=== PATIENT | female | born 1980 | race African-American/Black ===

== ENCOUNTER 2019-05-14 10:14 | Emergency (ER) | payer SELFPAY ==
[2019-05-14 11:26] LABS: #Basophils 0.1 thou/uL (0.0-0.2); #Eosinphils 0.2 thou/uL (0.0-0.7); #Lymphocytes 2.9 thou/uL (1.20-3.40); #Monocytes 0.6 thou/uL (0.11-0.59); #Neutrophils 6.4 thou/uL (1.40-6.50); %Basophils 0.6 % (0.0-1.0); %Eosinophils 2.2 % (0.0-10.0); %Lymphocytes 28.6 % (21.0-51.0); %Monocytes 5.7 % (0.0-10.0); %Neutrophils 62.9 % (42.0-75.0); Hemoglobin 13.4 g/dL (12.0-16.0); Mean Corpuscular HGB CONC 35.1 g/dL (32.0-36.0); Mean Corpuscular Hemoglobin 31.2 pg (27.0-31.0); Mean Corpuscular Volume 88.7 fL (78.0-98.0); Mean Platelet Volume 7.5 fL (7.4-10.4); Platelet Count 316 thou/uL (130-400); RBC Distribution Width 12.1 % (11.5-14.5); White Blood Cell (WBC) Count 10.1 thou/uL (4.8-10.8)
[2019-05-14 12:34] LABS: ALT (SGPT) 8 U/L (8-55); AST (SGOT) 10 U/L (5-34); Albumin 3.8 g/dL (3.5-5.0); Alkaline Phosphatase 122 U/L (40-150); Anion Gap 10 mmol/L (10-20); BUN (Urea Nitrogen) 11 mg/dL (7.0-18.7); Bilirubin, Total 0.5 mg/dL (0.2-1.2); Calc. Creatinine Clearance 0 mL/min (70-130); Calcium 9.7 mg/dL (7.8-10.44); Carbon Dioxide 29 mmol/L (22-29); Chloride 98 mmol/L (98-107); Estimated GFR-MDRD Greater than 90; Globulin 3.2 g/dL (2.4-3.5); Glucose 241 mg/dL (70-105); Potassium 4.3 mmol/L (3.5-5.1); Sodium 133 mmol/L (136-145)
[2019-05-14 12:48] LABS: BHCG - Serum Negative (NEGATIVE); Pregs Control Background? CLEAR/WHITE (CLR/WHITE); Pregs Control Bar Appear? YES (CONTROL BAR)
[2019-05-14] MEDS ORDERED: ISOVUE-370 76%-LOCM 1 ML ONE (12:56)
--- NOTE | 2019-05-14 13:39 | CT ---
CT CHEST WITH IV CONTRAST: Date: 05/14/19 INDICATION: Abscess posterior left chest region. No comparison. FINDINGS: Lungs are clear. No infiltrate. Mediastinum unremarkable. Review of the soft tissues reveals a large, circumscribed fluid dense collection with tiny internal a ir pockets in the subcutaneous tissues posterior left lower chest, posterior to tenth, eleventh, and twelfth ribs. This abuts the paraspinous musculature and abuts the skin surface, primarily encompassi ng the subcutaneous adipose tissue. It measures 13 cm AP dimension x 5.8 cm AP dimension in the axial plane. Surrounding inflammatory change. The upper abdominal structures, including visualized liver, spleen, pancreas, and kidneys are unremar kable. IMPRESSION: Large, loculated, low dense collection with internal gas pockets in the subcutaneous tissues posterio r left chest, posterior to the left tenth, eleventh, and twelfth ribs, as described above. Findings c onsistent with a subcutaneous abscess. This should be easily drainable as it abuts the skin surface. POS: OFF
[2019-05-14] MEDS ORDERED: Morphine 4 MG/ML VIAL ONE ×2 (13:50→16:04)
[2019-05-14] MEDS ORDERED: Ondansetron PF 4 MG/2 ML Vial ONE (13:50)
[2019-05-14] MEDS ORDERED: Lidocaine 1% (PF) 30 ML VIAL ONE (15:11)
== END 2019-05-14 16:28 | disposition home or self-care (01) ==
LOC: ERS 10:14
DX: L02.212 Cutaneous abscess of back [any part, except buttock and flank] (principal); F17.210 Nicotine dependence, cigarettes, uncomplicated
CPT/HCPCS: 10060; 36415; 71260; 80053; 83605; 84703; 85025; 96374; 96375; 96376; J2001; J2270; J2405; Q9966